=== PATIENT | female | born 1955 | race Two or more races ===

== ENCOUNTER 2016-07-28 08:53 | Observation (INO) | payer MEDICAID ==
--- NOTE | 2016-07-28 09:09 | EDPHY ---
H & P Time Seen by Provider: 07/28/16 09:02 HPI/ROS: CHIEF COMPLAINT: Seizure-like activity HISTORY OF PRESENT ILLNESS: 61-year-old female arrives via ambulance from [facility]. History obtained by [facility] report as patient is unable to provide history possibly secondary to her baseline of dementia. Per [facility] report patient has been experiencing increasing seizure-like activity last night and this morning was therefore sent to the ER for evaluation. In reviewing the patient's old medical records she has a listed seizure disorder for which she is on Keppra. Also has listed atherosclerotic heart disease and dementia history. She is a DNR are per paperwork. REVIEW OF SYSTEMS: Review of systems is limited secondary to patient's inability to provide history PAST MEDICAL & SURGICAL HISTORY: Dementia. Atherosclerotic heart disease. Seizure disorder. SOCIAL HISTORY: lives at [facility] PHYSICAL EXAM (Prior to examination, patient consented to physical exam, hands were washed and my usual and customary physical exam procedures followed) 1) GENERAL: Well-developed, well-nourished, awake. Appears to be in no acute distress. 2) HEAD: Normocephalic, atraumatic 3) HEENT: Pupils equal, round, reactive to light bilaterally. Sclera anicteric. No signs of trauma Nasopharynx, oropharynx, clear, no lesions. no signs of oral trauma. No tongue laceration or abrasion. Ears bilaterally with normal tympanic membranes. 4) NECK: Full range of motion, no meningeal signs. 5) LUNGS: Clear auscultation bilaterally, no wheezes, no rhonchi, no retractions. 6) HEART: Regular rate and rhythm, no murmur, no heave, no gallop. 7) ABDOMEN: No guarding, no rebound, no focal tenderness, negative McBurney's, negative Navarrete's, negative Rovsing's, negative peritoneal sign, 8) MUSCULOSKELETAL: Moving all extremities, no focal areas of tenderness, no obvious trauma. No peripheral edema or discoloration. 9) BACK: No CVA tenderness, no midline vertebral tenderness, no fluctuance, no step-off, no obvious trauma, no visual or palpable abnormality. 10) SKIN: No rash, no petechiae. DIFFERENTIAL DIAGNOSIS: In no particular orderincluding but not limited to hypoglycemia, infectious process, status epilepticus, electrolyte abnormality, head injury and intoxicants. (Meet Raya) Constitutional: Initial Vital Signs Temperature (C) 37.2 C 07/28/16 09:11 Heart Rate 85 07/28/16 09:11 Respiratory Rate 18 07/28/16 09:11 O2 Sat (%) 92 07/28/16 09:11 O2 Delivery Mode Room Air Allergies/Adverse Reactions: No Known Allergies Allergy (Unverified 07/28/16 09:14) Home Medications: Medication Instructions Recorded Aspirin EC [Aspirin EC 81 mg (*)] 81 mg PO DAILY 07/28/16 Galantamine Hydrobromide [Razadyne 8 mg PO BIDMEAL 07/28/16 8 MG (*)] QUEtiapine FUMARATE [Seroquel 100 100 mg PO HS 07/28/16 mg (*)] buPROPion [Wellbutrin 100mg (*)] 100 mg PO BID 07/28/16 levETIRAcetam [Keppra 500 mg (*)] 500 mg PO BID 07/28/16 risperiDONE [RisperDAL] 1 mg PO DAILY 07/28/16 Medical Decision Making - Diagnostics EKG Interpretation: EKG interpreted by me shows normal sinus rhythm with normal interval and axis. QRS is normal there is no significant ST elevation or depression. No arrhythmia. The rate is 83 (Devotne,Pete S) Imaging: Imaging Impressions Chest X-Ray 07/28/16 09:14 Impression: No pneumonia or failure. Head CT 07/28/16 09:14 Impression: Impressive premature atrophy. Nothing acute identified. Results called to LUDY Patel at 10:17 AM. General information for patients regarding this examination can be found at [email or web address]. If you have questions or comments about this report, please contact me at [phone] (hospital) or [phone] (cell). Images reviewed by myself (Meet Raya) ED Course/Re-evaluation: Patient is evaluated by me at 11:45 a.m.. She is nonverbal. She is stable. She is awake and does look at me and smiles. Exam is is nonfocal. I reviewed the history of seizure disorder on Keppra. At 11:55 a.m. the patient had a generalized tonic-clonic seizure. Airway management manifesting as jaw thrust was performed by me. She had snoring type breathing. She was suctioned. She had blood dribbling from both sides of mouth. She was given intravenous Ativan. Otherwise remained stable. (Pete Whitney) 9:13 a.m.: Patient is unable to provide us with a history. Discussed case Dr. Pete Whitney in the ER. Will obtain diagnostic studies and re-evaluate 11:00 a.m.: Re-evaluation, she is comp, cooperative. Unable provide history. The case checker has contacted the listed family members and has left a message on voicemail. Patient was also seen exam by Dr. Pete Whitney. 11:55 a.m.: Called emergently to patient's bedside as she was actively seizing. Both Dr. Whitney and myself at bedside. Patient sustained or trauma, actively seizing. IV Ativan 2 mg administered. Plan will be admission to hospital. 12:01 p.m.: Phone consultation with hospitalist Rica, admit to Dr. Figueroa 12:10 p.m.: Re-evaluated patient, specifically reexamined her oropharynx which is currently hemostatic, I visualize a small abrasion, no laceration (Meet Raya) - Data Points Laboratory Results: Laboratory Results 07/28/16 09:48 07/28/16 09:48 07/28/16 07/28/16 07/28/16 10:36 09:48 09:48 WBC 10.02 10^3/uL H 10^3/uL (3.80-9.50) RBC 4.01 10^6/uL L 10^6/uL (4.18-5.33) Hgb 11.9 g/dL L g/dL (12.6-16.3) Hct 37.1 % L % (38.0-47.0) MCV 92.5 fL fL (81.5-99.8) MCH 29.7 pg pg (27.9-34.1) MCHC 32.1 g/dL L g/dL (32.4-36.7) RDW 15.3 % H % (11.5-15.2) Plt Count 201 10^3/uL 10^3/uL (150-400) MPV 10.6 fL fL (8.7-11.7) Neut % (Auto) 83.5 % H % (39.3-74.2) Lymph % (Auto) 10.0 % L % (15.0-45.0) [place] % (Auto) 4.6 % % (4.5-13.0) Eos % (Auto) 0.4 % L % (0.6-7.6) Baso % (Auto) 0.5 % % (0.3-1.7) Nucleat RBC Rel Count 0.0 % % (0.0-0.2) Absolute Neuts (auto) 8.37 10^3/uL H 10^3/uL (1.70-6.50) Absolute Lymphs (auto) 1.00 10^3/uL 10^3/uL (1.00-3.00) Absolute Monos (auto) 0.46 10^3/uL 10^3/uL (0.30-0.80) Absolute Eos (auto) 0.04 10^3/uL 10^3/uL (0.03-0.40) Absolute Basos (auto) 0.05 10^3/uL 10^3/uL (0.02-0.10) Absolute Nucleated RBC 0.00 10^3/uL 10^3/uL (0-0.01) Immature Gran % 1.0 % % (0.0-1.1) Immature Gran # 0.10 10^3/uL 10^3/uL (0.00-0.10) Sodium 139 mEq/L mEq/L (134-144) Potassium 4.5 mEq/L mEq/L (3.5-5.2) Chloride 107 mEq/L mEq/L (97-110) Carbon Dioxide 23 mEq/l mEq/l (22-31) Anion Gap 9 mEq/L mEq/L (8-16) BUN 24 mg/dL H mg/dL (7-23) Creatinine 0.9 mg/dL mg/dL (0.6-1.0) Estimated GFR > 60 Glucose 96 mg/dL mg/dL (70-100) Calcium 9.0 mg/dL mg/dL (8.5-10.4) Troponin I < 0.012 ng/mL ng/mL (0-0.034) Urine Color YELLOW Urine Appearance CLEAR Urine pH 5.0 (5.0-7.5) Ur Specific [place] 1.018 (1.002-1.030) Urine Protein NEGATIVE (NEGATIVE) Urine Ketones NEGATIVE (NEGATIVE) Urine Blood 2+ H (NEGATIVE) Urine Nitrate NEGATIVE (NEGATIVE) Urine Bilirubin NEGATIVE (NEGATIVE) Urine Urobilinogen NEGATIVE EU EU (0.2-1.0) Ur Leukocyte Esterase NEGATIVE (NEGATIVE) Urine RBC 5-10 /hpf H /hpf (0-3) Urine WBC 1-3 /hpf /hpf (0-3) Ur Epithelial Cells TRACE /lpf /lpf (NONE-1+) Urine Mucus TRACE /lpf /lpf (NONE-1+) Urine Glucose NEGATIVE (NEGATIVE) Ethyl Alcohol < 10 mg/dL mg/dL (0-10) Medications Given: Discontinued Medications Sodium Chloride (Ns) 500 mls @ 0 mls/hr IV ONCE ONE PRN Reason: Wide Open Stop: 07/28/16 10:38 Last Admin: 07/28/16 10:43 Dose: 500 mls Lorazepam (Ativan Injection) 2 mg IVP ONCE ONE Stop: 07/28/16 12:08 Last Admin: 07/28/16 12:08 Dose: 2 mg Departure - Departure Disposition: [facility] Acute Clinical Impression: Seizure Condition: Good
--- NOTE | 2016-07-28 09:27 | CPEKG ---
Heart Rate: 83 RR Interval: 723 P-R Interval: 112 QRSD Interval: 76 QT Interval: 372 QTC Interval: 437 P [place]: 69 QRS [place]: 54 T Wave [place]: 52 EKG Severity - NORMAL ECG - EKG Impression: SINUS RHYTHM Electronically Signed By: Pete Whitney 28-Jul-2016 12:05:47
[2016-07-28 09:57] LABS: ADD DIFF? NO; ADD MORPH? NO; ADD SCAN? NO; ATYPICAL LYMPHOCYTE FLAG 10 (0-99); FRAGMENT RBC FLAG 0 (0-99); HEMATOCRIT 37.1 % (38.0-47.0); HEMOGLOBIN 11.9 g/dL (12.6-16.3); LEFT SHIFT FLG 20 (0-99); LIPEMIA HEMOLYSIS FLAG 80 (0-99); MEAN CELL HEMOGLOBIN 29.7 pg (27.9-34.1); MEAN CELL HEMOGLOBIN CONCENTR. 32.1 g/dL (32.4-36.7); MEAN CELL VOLUME 92.5 fL (81.5-99.8); MEAN PLATELET VOLUME 10.6 fL (8.7-11.7); PLATELET CLUMPS FLAG 0 (0-99); PLATELET COUNT 201 10^3/uL (150-400); RED BLOOD CELL COUNT 4.01 10^6/uL (4.18-5.33); RED CELL DISTRIBUTION WIDTH 15.3 % (11.5-15.2)
[2016-07-28 10:12] LABS: ANION GAP 9 mEq/L (8-16); CARBON DIOXIDE 23 mEq/l (22-31); CHLORIDE 107 mEq/L (97-110); CREATININE 0.9 mg/dL (0.6-1.0); ETHANOL SERUM < 10 mg/dL (0-10); GLOMERULAR FILTRATION RATE > 60; GLUCOSE 96 mg/dL (70-100); POTASSIUM 4.5 mEq/L (3.5-5.2); SODIUM 139 mEq/L (134-144)
[2016-07-28 10:23] LABS: TROPONIN I < 0.012 ng/mL (0-0.034)
[2016-07-28] MEDS ORDERED: NS 500 ML IV ONE (10:37)
[2016-07-28 10:47] LABS: COLOR YELLOW; LEUKOCYTE ESTERASE,URINE NEGATIVE (NEGATIVE); NITRITE,URINE NEGATIVE (NEGATIVE)
[2016-07-28 10:51] LABS: MUCUS TRACE /lpf (NONE-1+)
[2016-07-28] MEDS ORDERED: LORazepam 2 MG/ML INJ ONE (11:55)
[2016-07-28] MEDS ORDERED: LORazepam 2 MG/ML INJ IVP ONE (12:07)
[2016-07-28] MEDS ORDERED: ACETAMINOPHEN 325 MG TAB PO PRN (13:26)
[2016-07-28] MEDS ORDERED: ONDANSETRON DISINTEGRATING 4 MG TAB PO PRN (13:26)
[2016-07-28] MEDS ORDERED: ONDANSETRON 4 MG/2 ML VIAL IVP PRN (13:26)
--- NOTE | 2016-07-28 15:23 | GHP ---
[f rep st] HISTORY AND PHYSICAL DATE OF ADMISSION: 07/28/2016 CHIEF COMPLAINT: Seizure-like activity. HISTORY OF PRESENT ILLNESS: The patient is a 61-year-old female who resides at [facility]. She presented to the emergency room via ambulance from [facility] after being noted to have seizure-like activity last evening and again this morning. The patient is unable to verbalize or provide me any history secondary to her baseline dementia. Per the emergency room provider, as well as [facility], the patient was experiencing seizure-like activity last night , and then this morning was sent for further evaluation. The only thing I have to go on is the patient's medical records listing a seizure disorder, as well as dementia. I am requesting further records. The patient is arousable, but does not have any verbalizing complaints. REVIEW OF SYSTEMS: My review of systems is limited secondary to the patient's inability to verbalize and provide information. PAST MEDICAL HISTORY/SURGICAL HISTORY: This is limited given the fact that I only have minimal records from [facility] and I am obtaining further records , but is noted for severe dementia, atherosclerotic heart disease, seizure disorder. SOCIAL HISTORY: The patient lives at [facility]. She is unable to define any other social history. FAMILY HISTORY: Family history is unable to be reviewed. ALLERGIES: None. PHYSICAL EXAM: GENERAL: The patient is arousable, lethargic, no acute distress. VITAL SIGNS: Afebrile at 36.9, pulse is 96.6, respiratory rate 16, blood pressure is 118/69, she is saturating 98% on 2 L. HEENT: Normocephalic, atraumatic. Pupils equal, round, reactive to light bilaterally. Mucosal membranes are moist. NECK: Supple. No lymphadenopathy noted. RESPIRATORY: Lungs are clear to auscultation bilaterally. Decreased in the bases. No rhonchi appreciated. CARDIOVASCULAR: Regular rate and rhythm. No gallop or murmur noted. GASTROINTESTINAL: Abdomen bowel sounds are positive, soft and nontender. There is no guarding or rigidity appreciated. EXTREMITIES: Within normal limits. There is no clubbing or cyanosis noted. SKIN: Without rashes or lesions. MEDICATIONS: Per the patient's record Aspirin 81 mg daily, Razadyne 8 mg twice daily, Seroquel 100 mg at bedtime, Wellbutrin 100 mg b.i.d., Keppra 500 mg b.i.d., Risperidone 1 mg daily. IMAGING: Chest x-ray with no acute abnormalities. EKG normal sinus rhythm. CT of the head notes severe premature atrophy with no other acute abnormalities identified. LABORATORY DATA: White count of 10 with a hemoglobin 11.9 and hematocrit of 37.1. ASSESSMENT AND PLAN: The patient is a 61-year-old female who resides at [facility] presenting to the emergency room with seizure-like activity. 1. Seizure. The patient did have witnessed seizure during the emergency room visit. She was provided Ativan and has had no further seizure since then. I have consulted Neurology for evaluation secondary to the patient's history of seizure disorder. She is on Keppra and will continue this medication unless otherwise advised by Neurology. 2. Severe dementia. The patient's baseline is unclear. Will have to wait further records from [facility]. 3. Deep venous thrombosis prophylaxis. She has been placed on Lovenox. DISPOSITION: The patient will be admitted to observation status. I anticipate her hospitalization will be less than 48 hours. We will await Neurology's input and continue to monitor her closely for further seizure activity or other etiology of her acute process. Will continue to evaluate for further differential diagnoses and treat accordingly during the patient's hospitalization. I reviewed the patient's care with Pete Whitney MD and ABHINAV Barber in the emergency room. /[id number]/MODL MTDD
--- NOTE | 2016-07-28 15:30 | PDCONSULT ---
Lubrication Supervisor Note: HOSPITAL NEUROLOGY CONSULT REQUESTING: Kory Figueroa MD REASON: seizures HPI: 61 yo woman with a history of dementia, seizures, CAD was brought to our ED today with increasing seizure-like activity. She is a resident of [facility]. She is currently post-ictal/sedated. Single record in the chart from [place], [place], which is really not too meaningful regarding her dementia/seizure history. Staff and myself have attempted to contact [facility] multiple times without any response. I don't have any sense of her neurologic baseline or detailed history. We know she has been taking levetiracetam 500mg twice daily. She has also been taking bupropion, quetiapine, risperidone, galantamine and aspirin. ROS: Unobtainable from patient ALLERGIES AND MEDS: As recorded and reviewed in the [facility] PFSH: As noted above and as per the intake H&P by Dr. Figueroa from today. EXAM: VS reviewed in EMR limited physical exam as she is sedated/post-ictal GEN: thin woman laying in bed in position HEENT: left frontal scalp sebaceous appearing cyst, nontraumatic, she will not open her mouth to visualize oropharynx, sclera anicteric and conjunctiva not injected NECK: supple, nontender, no meningismus CV: RRR s1 s2 wo m/r/c/g, distal pulses 2+, carotid pulses 2+ NEURO: MS: she has her eyes closed, no response to verbal output, repeats "ouch" to noxious stimulation of the extremities but won't open eyes, otherwise cannot assess higher cortical function CN: pupils 4mm round reactive, cannot visualize fundi, primary gaze centered with forced eye opening, no VORs, no blink to threat when forcibly opening eyes , grimaces to nox stim of the face, face symmetric, she won't open mouth to assess palatoglossal movements MOTOR: globally reduced bulk, paratonic throughout, no spontaneous movements SENSORY: localizes with BUEs, briskly withdraws in BLEs REFLEX: plantars equivocal, DTRs 2/4 COORD/GAIT: cannot assess DATA: Labs reviewed in EMR CT head wo personally reviewed - rather profound global volume loss, no acute pathology IMPRESSION: // BREAKTHROUGH SEIZURES // DEMENTIA HX // SEIZURE HX Patient with unknown neurologic baseline presents with multiple seizures, with last one witnessed in ED. Staff and primary team will continue to attempt gathering further background data - attempts so far have failed. Increase levetiracetam to 1000mg BID Lorazepam 2mg IV PRN seizure lasting more than 3 mins in duration Cont seizure safety precautions Metabolic/infectious screening per primary team Check levetiracetam level for compliance screening (may take longer than her hospitalization to return, but may be useful information in future) Cont to hold her psychotropic medications for now, as she will be NPO - bupropion portends high risk of seizure threshold lowering, as well Cont NPO status until more awake, then screen for swallowing dysfunction If she continues to be sedated/unresponsive, or if she experiences any seizure without return to baseline in a reasonable amount of time, she will need transfer to a high-level epilepsy center for continuous EEG monitoring - for now she does not seem to be in nonconvulsive status
[2016-07-28] MEDS: levETIRAcetam 1,000 MG in NS 100 ML IV SCH (17:44)
[2016-07-29] MEDS: levETIRAcetam 1,000 MG in NS 100 ML IV SCH (04:52)
[2016-07-29 07:48] VITALS: RESP 15
[2016-07-29] MEDS ORDERED: ENOXAPARIN 40 MG/0.4 ML SYR SC SCH (09:00)
[2016-07-29] MEDS ORDERED: buPROPion 100 MG TAB PO SCH (10:30)
[2016-07-29] MEDS ORDERED: ASPIRIN EC 81 MG TAB PO SCH (10:30)
[2016-07-29] MEDS ORDERED: risperiDONE 1 MG TAB PO SCH (10:30)
[2016-07-29 12:12] VITALS: BP 113/60; PULSE 75; TEMP 98.6; O2SAT 87
--- NOTE | 2016-07-29 12:18 | NEUROPROG ---
Assessment: INTERVAL HISTORY: Per nursing report, patient has a history of end-stage Alzheimer disease, baseline aphasia/minimal verbal output. She is apparently at baseline per family report, though, no family at bedside today. Patient does indeed have a dearth of spontaneous speech, and the speech output is nonsensical and fluent. No seizures since last one in the ED yesterday. On increased levetiracetam. EXAM: VS reviewed in EMR MS: awake, eyes opened, tracks examiner, does not respond to questioning, dearth of spontaneous speech, speech output that is present is fluent and nonsensical. She does not follow commands or pantomime. She seems to attend to both sides. Cannot otherwise assess higher cortical function. CN: pupils 3mm round reactive. Blinks to threat OU. Primary gaze centered. Full horizontal motility with tracking. Grimace to nox stim of the face. Face symmetric. Won't open mouth to assess palatoglossal movements. Turns head to both sides symmetrically. MOTOR: lower bulk globally, normal tone today. Making purposeful spontaneous movements, such as scratching head and using arms/legs to reposition. SENSORY: localizes with BUEs, brisk withdrawal to BLEs REFLEX: plantars equivocal, no clonus, absent DTRs but she is activating COORD: no gross ataxia - won't participate in formal exam GAIT: deferred to PT safety eval DATA: Labs reviewed in EMR CT head wo shows global volume loss, quite profound for age IMPRESSION: // BREAKTHROUGH SZ // HX SEIZURES // HX END STAGE ALZHEIMER DISEASE Patient with breakthrough seizure in the setting of a known seizure disorder, likely from underlying neurodegenerative disease. No infectious/metabolic disturbance has declared itself on investigation to date. Unsure about levetiracetam compliance - level is pending. Could just be [id number] breakthrough, which can occur in these conditions. Recommend continuing increased levetiracetam 1000mg BID Seizure precautions Cont infectious/metabolic screening per primary team Levetiracetam level pending Delirium precautions Lorazepam 2mg IV for any seizure lasting longer than 5 mins Would continue to hold bupropion, as it is one of the biggest culprits in seizure threshold lowering Would continue to hold galantamine - no role/benefit for memory supportive medications in end-stage disease Consider streamlining risperidone/quetiapine in outpatient setting - unknown why she is on 2 different atypical antipsychotics with similar mechanisms of action F/U with her current PCP/[facility] providers and neurologic providers after discharge Will sign off. Please recall as needed. Objective: Vital Signs Temp Pulse Resp BP Pulse Ox 36.9 C 62 15 105/62 100 07/29/16 07:48 07/29/16 07:48 07/29/16 07:48 07/29/16 07:48 07/29/16 07:48 07/28/16 07/29/16 07/30/16 05:59 05:59 05:59 Intake Total 610 Balance 610 Allergies/Adverse Reactions: No Known Allergies Allergy (Unverified 07/28/16 09:14)
--- NOTE | 2016-07-29 14:28 | PDIAF ---
- Diagnosis Code Status: Do Not Resuscitate - Medication Management Discharge Medications: Medications to Continue on Transfer Aspirin EC [Aspirin EC 81 mg (*)] 81 mg PO DAILY 07/28/16 [Last Taken Unknown] Galantamine Hydrobromide [Razadyne 8 MG (*)] 8 mg PO BIDMEAL 07/28/16 [Last Taken Unknown] QUEtiapine FUMARATE [Seroquel 100 mg (*)] 100 mg PO HS 07/28/16 [Last Taken Unknown] buPROPion [Wellbutrin 100mg (*)] 100 mg PO BID 07/28/16 [Last Taken Unknown] risperiDONE [Risperdal 1mg (*)] 1 mg PO DAILY 07/28/16 [Last Taken Unknown] LEVETIRACETAM [Keppra 1000 mg] 1,000 mg PO BID #0 tab 07/29/16 [Last Taken Unknown] Discharge Medications: Refer to the Discharge Home Medication list for PRN reason. - Orders Services needed: Registered Nurse, Certified Sales Operations Director, Physical Therapy, Occupational Therapy Diet Texture: Regular Texture Diet, Thin Liquids, Meds Crushed in Puree - Follow Up Care Current Providers and Referrals: ESVIN MIKE [Primary Care Provider] - As per Instructions Nick Rios DO [Doctor of Osteopathy] - follow up in 2 weeks
--- NOTE | 2016-07-29 15:21 | GDS ---
[f rep st] DISCHARGE SUMMARY KNOWN ACUTE DIAGNOSES ON THIS ADMISSION: 1. Acute seizure disorder with acute exacerbation of an underlying seizure disorder. Patient's Kep pra was increased from 500 mg b.i.d. to 1000 mg b.i.d. 2. Alzheimer dementia x5 years. 3. Depression. 4. Schizophrenia. 5. DNR. 6. Power of energy attorney is the patient's nephew. CONSULTATION: Neurology. PROCEDURES: CT of the head shows impressive premature atrophy, but nothing acute was seen. HOSPITAL COURSE: This is a 61-year-old female who is new to this facility. We have gathered record s from her facility in [place] and information from her brother, Andres. The following information is c ontained from these 2 sources. This is a 61-year-old female whom at this time has end-stage Alzheimer disease. She had initial lo gnosis approximately 5 years ago, and then developed a seizure disorder approximately 3 years ago. She had previously been treated with Keppra 500 mg b.i.d. She moved from [place] to the [place] area to be with family, and has been in residence at [facility] for the last 6 weeks. 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 On the day of admission, she had a more significant seizure apparently, and was transferred here for evalua tion. She was seen by Neurology. CT scan was negative for acute trauma, and her seizure disorder w as brought under control with Keppra 1000 mg infusion, and then 1000 mg b.i.d. All laboratories wer e normal. CT scan was negative. On examination, the patient does not respond to questions and has a girth of spontaneous speech. Sh e does not follow commands. Neurology's final diagnosis was the patient had a breakthrough seizure with a history of seizure dis orders and end-stage Alzheimer disease. DISCHARGE MEDICATIONS: Her stopped medication will be Keppra 500 mg b.i.d. New medication will be Keppra 1000 mg b.i.d., and then her usual medications will be bupropion 100 m g b.i.d., Razadyne 8 mg b.i.d., Seroquel 100 mg h.s., risperidone 1 mg daily, aspirin 81 mg daily. PLAN: Patient will be discharged to [facility]. She will be in permanent residence there. Note that she has family, her brother and her parents are in the area. Her nephew has power of energy attorney who had lived with her in [place]. Her followup will be with Dr. Rios, who has seen her for neuro logy during this hospitalization, and with Dr. Christian Varma, her primary care provider. Time this discharge required: 45 minutes, greater than 50% to aids counselor and coordinate care, and disc uss findings with her brother, Andres. /[id number]/MODL
[2016-07-29] MEDS ORDERED: GALANTAMINE HBr 8 MG TAB PO SCH (18:00)
[2016-07-29] MEDS ORDERED: QUEtiapine FUMARATE 100 MG TAB PO SCH (21:00)
== END 2016-07-29 16:27 ==
LOC: INTOOBSV 12:01 → F3N 12:52
PROVIDERS: ADMIT Internal Medicine; ATTEND Internal Medicine Pulmonary Disease
DX: G40.909 Epilepsy, unspecified, not intractable, without status epilepticus (principal); G30.9 Alzheimer's disease, unspecified; F02.80 Dementia in other diseases classified elsewhere, unspecified severity, without behavioral disturbance, psychotic disturbance, mood disturbance, and anxiety; F20.9 Schizophrenia, unspecified; F32.9 Major depressive disorder, single episode, unspecified; Z66 Do not resuscitate
CPT/HCPCS: 70450; 71010; 92610; 93005; G0378; 80177-90; 96374; G0480; J1650; J1953; J2060